=== PATIENT | female | born 1990 | race Caucasian/White ===

== ENCOUNTER 2022-06-23 10:00 | Outpatient (RCR) | payer BC, SELFPAY | END 2022-07-28 17:20 | disposition home or self-care (01) | LOC: PT 10:00 | DX: M25.552 Pain in left hip (principal) | CPT/HCPCS: 97110; 97163 ==

== ENCOUNTER 2023-12-23 10:43 | Outpatient (CLI) | payer BC, SELFPAY ==
[2023-12-23 10:58] LABS: Microscopic, Urine URINE MICROSCOPIC (MICROSCOPIC)
[2023-12-23 11:11] LABS: Appearance,Urine CLEAR (Clear); Bilirubin,Urine Negative (Negative); Blood, Urine Negative (Negative); Color,Urine YELLOW (Yellow); Glucose,Urine (UA) Negative (Negative); Ketones,Urine Negative (Negative); Leukocyte Esterase,Urine Negative (Negative); Nitrate,Urine Negative (Negative); Protein,Urine Negative (Negative); Specific Gravity, Urine 1.015 (1.005-1.030); Urobilinogen,Urine 0.2 EU/dl (0.2)
[2023-12-23 11:22] LABS: Hematocrit 45.4 % (37.0-47.0); Hemoglobin 14.8 g/dL (12.2-16.2); Mean Corpuscular HGB Conc 32.5 g/dL (31.8-35.4); Platelet Count 140 K/mm3 (142-424); Red Blood Count 5.28 M/mm3 (4.20-5.40); Red Cell Distribution Width 14.3 % (11.5-17.5)
[2023-12-23 11:30] LABS: Creatinine,Urine Random 129 mg/dL (Not Estab.)
[2023-12-23 11:32] LABS: Bacteria,Urine Trace /lpf
[2023-12-23 11:42] LABS: Albumin Level 4.6 g/dl (3.5-5.0); Anion Gap 11.6 mEq/L (5-15); Blood Urea Nitrogen 17 mg/dl (7-17); Calcium 9.7 mg/dl (8.4-10.2); Carbon Dioxide 29 mmol/L (22.0-30.0); Chloride 104 mmol/L (98-107); Estimated Glomerular Filt Rate 72 ml/min (>60); GFR (African American) 87 ML/MIN (>60); Glucose 104 mg/dl (74-100); Phosphorous 3.6 mg/dl (2.5-4.5); Potassium 4.6 mmoL/L (3.5-5.1); Sodium 140 mmol/L (136-145)
[2023-12-23 11:53] LABS: Intact Parathyroid Hormone 37.7 pg/mL (7.5-53.5)
== END 2023-12-23 23:59 | disposition home or self-care (01) ==
LOC: LAB 10:52
PROVIDERS: Visit Provider Nurse Practitioner
DX: N28.9 Disorder of kidney and ureter, unspecified (principal); E55.9 Vitamin D deficiency, unspecified
CPT/HCPCS: 36415; 80069; 81001; 82306; 82570; 83970; 84156; 85027